=== PATIENT | female | born 1940 | race Caucasian/White ===

== ENCOUNTER 2019-04-09 19:04 | Emergency (ER) | payer MEDICARE ==
[2019-04-09 19:34] VITALS: BP 117/67
[2019-04-09 19:59] LABS: Influenza A Molecular NEGATIVE (Negative); Influenza B Molecular NEGATIVE (Negative)
[2019-04-09] MEDS ORDERED: Albuterol HFA INHALER* 8 gm MDI INH ONE (20:06)
[2019-04-09] MEDS ORDERED: Amoxicillin PO (*) 500 MG CAP PO ONE (20:07)
[2019-04-09] MEDS ORDERED: Amoxicillin PO (*) 250 MG CAP PO ONE (20:07)
--- NOTE | 2019-04-09 20:07 | UC ---
Respiratory Complaint HPI - HPI Summary HPI Summary: 78 yo female with fever/cough mailase x 1-2 days no cp (+) wheezing with mild dyspnea no n/v/d - History of Current Complaint Chief Complaint: UCGeneralIllness Stated Complaint: FEVER COUGH SORE THROAT HEADACHE Time Seen by Provider: 04/09/19 19:07 Hx Obtained From: Patient Onset/Duration: Gradual Onset, Lasting Days Timing: Constant Severity Initially: Mild Severity Currently: Moderate Pain Intensity: 0 Pain Scale Used: 0-10 Numeric Character: Cough: Productive Aggravating Factors: Nothing Alleviating Factors: Nothing Associated Signs And Symptoms: Positive: Dyspnea, Fever, Chills, Wheezing, Nasal Congestion. Negative: Hemoptysis, Dizziness, Calf Pain, Calf Swelling, Edema, URI, Hoarseness - Allergies/Home Medications Allergies/Adverse Reactions: Allergies Allergy/AdvReac Type Severity Reaction Status Date / Time No Known Allergies Allergy Verified 04/09/19 19:34 PMH/Surg Hx/FS Hx/Imm Hx Previously Healthy: Yes Endocrine History: Dyslipidemia Cardiovascular History: Hypertension - Surgical History Surgical History: Yes Surgery Procedure, Year, and Place: 1982 HYSTERECTOMY, [facility]. 2014- LEFT EYE CATARACT- [facility] – [place] - Family History Known Family History: Positive: Hypertension - Social History Alcohol Use: None Substance Use Type: None Smoking Status (MU): Current Every Day Smoker Type: Cigarettes Amount Used/How Often: 1/2 ppd PER DAY X 60 YEARS Length of Time of Smoking/Using Tobacco: 53 YEARS Have You Smoked in the Last Year: Yes Review of Systems All Other Systems Reviewed And Are Negative: Yes Constitutional: Positive: Fever, Chills, Fatigue Skin: Positive: Negative Eyes: Positive: Negative ENT: Positive: Nasal Discharge, Sinus Congestion Respiratory: Positive: Cough Cardiovascular: Positive: Negative Gastrointestinal: Positive: Negative Genitourinary: Positive: Negative Motor: Positive: Negative Neurovascular: Positive: Negative Musculoskeletal: Positive: Negative Neurological: Positive: Negative Psychological: Positive: Negative Physical Exam Triage Information Reviewed: Yes Appearance: Well-Appearing, No Pain Distress, Well-Nourished Vital Signs: Initial Vital Signs Temp 98.4 F 04/09/19 19:26 Pulse 96 04/09/19 19:26 Resp 20 04/09/19 19:26 BP 117/67 04/09/19 19:26 Pulse Ox 94 04/09/19 19:26 Vital Signs Reviewed: Yes Eyes: Positive: Conjunctiva Clear ENT: Positive: Hearing grossly normal, Uvula midline. Negative: Nasal congestion, Nasal drainage, Trismus, Muffled voice, Hoarse voice Neck: Positive: Supple, Nontender, No Lymphadenopathy Respiratory: Positive: No respiratory distress, No accessory muscle use, Wheezing Cardiovascular: Positive: RRR, No Murmur Musculoskeletal: Positive: ROM Intact, No Edema Neurological: Positive: Alert Psychological Exam: Normal Diagnostics - Radiology No standard instances Radiology Interpretation Completed By: ED Physician Summary of Radiographic Findings: ? RLL infiltrate Respiratory Course/Dx - Differential Dx/Diagnosis Provider Diagnosis: Pneumonia Discharge ED - Sign-Out/Discharge Documenting (check all that apply): Patient Departure All imaging exams completed and their final reports reviewed: No - Discharge Plan Condition: Stable Disposition: HOME Patient Education Materials: Community Acquired Pneumonia (ED), How to Use a Metered-Dose Inhaler and a Spacer (ED) Referrals: Radha Chand MD [Primary Care Provider] - 3 Days Additional Instructions: The offical XR reading is pending You have an early pneumonia recheck with your MD early this week - Billing Disposition and Condition Condition: STABLE Disposition: Home
--- NOTE | 2019-04-10 17:10 | UC ---
- Progress Note Progress Note: Final radiologist reading for chest x-ray from April 09, 2019 comes back as a right lower lobe infiltrate. Provider's interpretation from same date is the same therefore there is no discrepancy. Course/Dx - Diagnoses Provider Diagnoses: Pneumonia Discharge ED - Sign-Out/Discharge Documenting (check all that apply): Patient Departure All imaging exams completed and their final reports reviewed: Yes - Discharge Plan Condition: Stable Disposition: HOME Prescriptions: Amoxicillin PO (*) [Amoxicillin 875 MG (*)] 875 mg PO BID #14 tab Patient Education Materials: Community Acquired Pneumonia (ED), How to Use a Metered-Dose Inhaler and a Spacer (ED) Referrals: Radha Chand MD [Primary Care Provider] - 3 Days Additional Instructions: The offical XR reading is pending You have an early pneumonia recheck with your MD early this week - Billing Disposition and Condition Condition: STABLE Disposition: Home
== END 2019-04-09 20:31 | disposition home or self-care (01) ==
LOC: UCCORT 19:04
DX: J18.9 Pneumonia, unspecified organism (principal); J44.9 Chronic obstructive pulmonary disease, unspecified; I10 Essential (primary) hypertension; F17.210 Nicotine dependence, cigarettes, uncomplicated
CPT/HCPCS: 71046; 99203; A9270-GY; G0463

== ENCOUNTER 2022-12-21 14:03 | Inpatient (IN) ==
[2022-12-21] MEDS ORDERED: NS 0.9% 1000 ml BAG 1,000 ML IV ONE ×2 (14:13→16:45)
[2022-12-21 15:14] LABS: Hematocrit 32.5 % (35-45); Hemoglobin 11.2 g/dL (11.5-14.3); Mean Corpuscular Hemoglobin 28.7 pg (27-33); Mean Corpuscular Hgb Conc 34.5 g/dL (31-36); Mean Corpuscular Volume 83.3 fL (80-97); Mean Platelet Volume 7.6 fL (7.5-11.2); Platelet Count 86 10^3/uL (150-450); Red Cell Distribution Width 18.8 % (12-17); White Blood Count 0.7 10^3/uL (3.8-11.8)
[2022-12-21 15:23] LABS: High Sens Troponin Baseline 7 pg/mL (<15)
[2022-12-21 15:32] LABS: ALT 13 U/L (7-52); Albumin 2.6 g/dL (3.2-5.2); Albumin/Globulin Ratio 1.1 (1-3); Alkaline Phosphatase 51 U/L (35-149); Blood Urea Nitrogen 9 mg/dL (6-24); C Reactive Protein 127.24 mg/L (<8.01); CO2 Carbon Dioxide 16 mmol/L (22-32); Calcium 6.8 mg/dL (8.6-10.3); Chloride 106 mmol/L (101-111); Creatinine, Serum 0.43 mg/dL (0.51-0.95); Globulin 2.3 g/dL (2-4); Glucose 103 mg/dL (70-100); Lipase < 10 U/L (11.0-82.0); Sodium 130 mmol/L (135-145); Total Protein 4.9 g/dL (6.4-8.9); eGFR CKD-EPI 96.4 (>60)
[2022-12-21 15:44] LABS: Anion Gap 8 mmol/L (2-16)
[2022-12-21 16:19] LABS: ABS Lymphocytes 0.3 10^3/uL (1.0-4.8); Eosinophil % 1.4 %; Lymphocyte % 45.4 %; Nucleated Red Blood Cells % 0.6 /100 WBC (0.0-0.4)
[2022-12-21 16:39] LABS: ABS Neutrophils 0.4 10^3/uL (1.5-7.6)
[2022-12-21 16:52] LABS: INR 1.19 (0.88-1.18)
[2022-12-21 16:57] LABS: Magnesium 1.7 mg/dL (1.9-2.7); Phosphorus 1.7 mg/dL (2.5-5.0); Potassium Redraw 3.2 mmol/L (3.5-5.0)
[2022-12-21] MEDS ORDERED: KCL 20 MEQ/100 ML IVPREMIX 20 MEQ/100 ML BAG IV ONE (17:49)
[2022-12-21] MEDS ORDERED: Magnesium Sulfate IV 3 GM in NS 0.9% 100 ml BAG 100 ML IVPB ONE (17:49)
[2022-12-22 06:37] LABS: Albumin 2.6 g/dL (3.2-5.2); Albumin/Globulin Ratio 1.2 (1-3); Calcium 6.7 mg/dL (8.6-10.3); Creatinine, Serum 0.43 mg/dL (0.51-0.95); Globulin 2.1 g/dL (2-4); Magnesium 2.5 mg/dL (1.9-2.7); Phosphorus 1.8 mg/dL (2.5-5.0); Potassium 3.1 mmol/L (3.5-5.0); Total Bilirubin 0.8 mg/dL (0.2-1.0); Total Protein 4.7 g/dL (6.4-8.9); eGFR CKD-EPI 96.4 (>60)
[2022-12-22 06:43] LABS: ABS Lymphocytes 0.4 10^3/uL (1.0-4.8); ABS Neutrophils 0.3 10^3/uL (1.5-7.6); ABS Nucleated RBC 0.01 10^3/ul; Eosinophil % 1.3 %; Hematocrit 34.5 % (35-45); Hemoglobin 11.7 g/dL (11.5-14.3); Lymphocyte % 59.3 %; Mean Corpuscular Hgb Conc 33.9 g/dL (31-36); Mean Corpuscular Volume 85.5 fL (80-97); Mean Platelet Volume 7.7 fL (7.5-11.2); Nucleated Red Blood Cells % 0.8 /100 WBC (0.0-0.4); Platelet Count 92 10^3/uL (150-450); Red Blood Count 4.04 10^6/uL (3.63-4.92); Red Cell Distribution Width 18.6 % (12-17); White Blood Count 0.7 10^3/uL (3.8-11.8)
[2022-12-22] MEDS ORDERED: Potassium Chloride LIQUID 20 MEQ/15 ML LIQUID PO ONE (10:05)
[2022-12-22] MEDS: Morphine ER 15 mg TAB ** extended release PO SCH (20:30)
[2022-12-23] MEDS: Ondansetron 4 mg VIAL 2 MG/ML 2 ml VIAL IV PRN ×2 (02:33→10:02)
[2022-12-23 06:36] LABS: ABS Lymphocytes 0.3 10^3/uL (1.0-4.8); ABS Monocytes 0.1 10^3/uL (0.0-0.9); ABS Neutrophils 0.1 10^3/uL (1.5-7.6); Eosinophil % 2.7 %; Hemoglobin 11.6 g/dL (11.5-14.3); Lymphocyte % 65.5 %; Mean Corpuscular Hemoglobin 28.8 pg (27-33); Mean Corpuscular Hgb Conc 33.2 g/dL (31-36); Mean Corpuscular Volume 86.8 fL (80-97); Platelet Count 104 10^3/uL (150-450); Red Blood Count 4.03 10^6/uL (3.63-4.92); Red Cell Distribution Width 19.4 % (12-17); White Blood Count 0.5 10^3/uL (3.8-11.8)
[2022-12-23 06:39] LABS: Calcium 7.2 mg/dL (8.6-10.3); Creatinine, Serum 0.43 mg/dL (0.51-0.95); Potassium 2.9 mmol/L (3.5-5.0); eGFR CKD-EPI 96.4 (>60)
[2022-12-23 07:02] LABS: Nucleated Red Blood Cells % 0.4 /100 WBC (0.0-0.4)
[2022-12-23] MEDS ORDERED: Potassium Chloride LIQUID 20 MEQ/15 ML LIQUID PO ONE (07:29)
[2022-12-23] MEDS: KCL 20 MEQ/100 ML IVPREMIX 20 MEQ/100 ML BAG IV SCH ×2 (10:06→13:35)
[2022-12-23] MEDS: Morphine ER 15 mg TAB ** extended release PO SCH ×2 (10:11→20:22)
[2022-12-23] MEDS: Potassium Chlor 20 meq TAB.ER PO SCH (10:17)
[2022-12-24 06:07] LABS: Hematocrit 35.3 % (35-45); Hemoglobin 11.9 g/dL (11.5-14.3); Mean Corpuscular Hemoglobin 28.6 pg (27-33); Mean Corpuscular Hgb Conc 33.7 g/dL (31-36); Mean Corpuscular Volume 84.8 fL (80-97); Mean Platelet Volume 8.1 fL (7.5-11.2); Platelet Count 97 10^3/uL (150-450); Red Blood Count 4.16 10^6/uL (3.63-4.92); Red Cell Distribution Width 19.1 % (12-17); White Blood Count 0.5 10^3/uL (3.8-11.8)
[2022-12-24 06:15] LABS: Creatinine, Serum 0.53 mg/dL (0.51-0.95); Potassium 2.9 mmol/L (3.5-5.0); eGFR CKD-EPI 91.7 (>60)
[2022-12-24 07:52] LABS: Magnesium 1.7 mg/dL (1.9-2.7)
[2022-12-24 08:26] LABS: ABS Lymphocytes 0.3 10^3/uL (1.0-4.8); ABS Monocytes 0.1 10^3/uL (0.0-0.9); ABS Neutrophils 0.1 10^3/uL (1.5-7.6); Eosinophil % 0.3 %
[2022-12-24] MEDS ORDERED: Magnesium Sulfate IV 3 GM in NS 0.9% 100 ml BAG 100 ML IVPB ONE (08:30)
[2022-12-24] MEDS: Morphine ER 15 mg TAB ** extended release PO SCH ×2 (09:42→19:31)
[2022-12-24] MEDS: KCL 20 MEQ/100 ML IVPREMIX 20 MEQ/100 ML BAG IV SCH ×2 (09:42→14:34)
[2022-12-24] MEDS: Potassium Chlor 20 meq TAB.ER PO SCH (09:43)
[2022-12-24] MEDS: Ondansetron 4 mg VIAL 2 MG/ML 2 ml VIAL IV PRN ×2 (13:01→20:01)
[2022-12-24] MEDS ORDERED: cefTRIAXone 1 gm/50 mL D5W 1 GM/50 ML BAG IV SCH (18:30)
[2022-12-24] MEDS ORDERED: Azithromycin 500 mg/250 ml NS 500 MG/250 ML BAG IVPB SCH (19:30)
[2022-12-25 06:34] LABS: Hematocrit 34.5 % (35-45); Hemoglobin 11.8 g/dL (11.5-14.3); Mean Corpuscular Hemoglobin 28.7 pg (27-33); Mean Corpuscular Hgb Conc 34.1 g/dL (31-36); Mean Corpuscular Volume 84.1 fL (80-97); White Blood Count 0.7 10^3/uL (3.8-11.8)
[2022-12-25 06:38] LABS: Creatinine, Serum 0.46 mg/dL (0.51-0.95); Magnesium 2.1 mg/dL (1.9-2.7); Potassium 2.9 mmol/L (3.5-5.0); eGFR CKD-EPI 94.9 (>60)
[2022-12-25 07:02] LABS: Mean Platelet Volume 8.8 fL (7.5-11.2); Platelet Count 68 10^3/uL (150-450)
[2022-12-25 07:04] LABS: ABS Lymphocytes 0.3 10^3/uL (1.0-4.8); ABS Neutrophils 0.5 10^3/uL (1.5-7.6); Anisocytosis 2+; Eosinophil % 0.3 %; Nucleated Red Blood Cells % 0.3 /100 WBC (0.0-0.4)
[2022-12-25] MEDS: KCL 20 MEQ/100 ML IVPREMIX 20 MEQ/100 ML BAG IV SCH ×2 (08:11→11:04)
[2022-12-25] MEDS: Potassium Chlor 20 meq TAB.ER PO SCH (08:11)
[2022-12-25] MEDS: Morphine ER 15 mg TAB ** extended release PO SCH ×2 (08:11→20:47)
[2022-12-25] MEDS ORDERED: Lactated Ringers 1000 ml BAG 1,000 ML IV ONE (09:57)
[2022-12-25] MEDS ORDERED: Cefepime ADVAN 1 GM in NS 0.9% 50 ML 50 ML IVPB SCH (10:00)
[2022-12-25] MEDS ORDERED: Cefepime 2 GM in Dextrose 2 GM/50 ML BAG IV SCH (11:00)
[2022-12-25] MEDS: Cefepime 2 GM in Dextrose 2 GM/50 ML BAG IV SCH ×2 (12:38→23:45)
[2022-12-25] MEDS ORDERED: KCL 20 MEQ/100 ML IVPREMIX 20 MEQ/100 ML BAG IV ONE (13:31)
[2022-12-25 13:57] VITALS: BP 107/64
[2022-12-26 08:35] LABS: Hematocrit 30.8 % (35-45); Hemoglobin 10.5 g/dL (11.5-14.3); Mean Corpuscular Hemoglobin 28.7 pg (27-33); Mean Corpuscular Hgb Conc 34.1 g/dL (31-36); Mean Corpuscular Volume 84.3 fL (80-97); Mean Platelet Volume 8.9 fL (7.5-11.2); Platelet Count 44 10^3/uL (150-450); Red Blood Count 3.66 10^6/uL (3.63-4.92); Red Cell Distribution Width 19.4 % (12-17); White Blood Count 1.2 10^3/uL (3.8-11.8)
[2022-12-26 08:38] LABS: Calcium 6.8 mg/dL (8.6-10.3); Creatinine, Serum 0.38 mg/dL (0.51-0.95); Potassium 3.1 mmol/L (3.5-5.0); eGFR CKD-EPI 99.4 (>60)
[2022-12-26 09:26] LABS: ABS Lymphocytes 0.2 10^3/uL (1.0-4.8); ABS Nucleated RBC 0.01 10^3/ul; Eosinophil % 0.3 %; Lymphocyte % 17.6 %; Nucleated Red Blood Cells % 0.4 /100 WBC (0.0-0.4); RBC Morphology Normal (Normal)
[2022-12-26] MEDS: Morphine ER 15 mg TAB ** extended release PO SCH ×2 (09:48→21:51)
[2022-12-26] MEDS: Cefepime 2 GM in Dextrose 2 GM/50 ML BAG IV SCH ×2 (12:00→21:55)
[2022-12-27 06:52] LABS: ABS Lymphocytes 0.4 10^3/uL (1.0-4.8); Lymphocyte % 16.9 %; Nucleated Red Blood Cells % 0.1 /100 WBC (0.0-0.4)
[2022-12-27 06:53] LABS: Anisocytosis 1+; Burr Cells 1+; Hematocrit 32.8 % (35-45); Hemoglobin 11.1 g/dL (11.5-14.3); Mean Corpuscular Hemoglobin 28.7 pg (27-33); Mean Corpuscular Volume 84.5 fL (80-97); Mean Platelet Volume 10.2 fL (7.5-11.2); Platelet Count 35 10^3/uL (150-450); Red Blood Count 3.87 10^6/uL (3.63-4.92); Red Cell Distribution Width 19.9 % (12-17); Toxic Granulation 1+; White Blood Count 2.5 10^3/uL (3.8-11.8)
[2022-12-27] MEDS: Morphine ER 15 mg TAB ** extended release PO SCH ×2 (08:02→20:16)
[2022-12-27] MEDS: Cefepime 2 GM in Dextrose 2 GM/50 ML BAG IV SCH ×2 (10:32→23:04)
[2022-12-28 06:18] LABS: Hematocrit 29.7 % (35-45); Hemoglobin 10.2 g/dL (11.5-14.3); Mean Corpuscular Hemoglobin 28.9 pg (27-33); Mean Corpuscular Hgb Conc 34.4 g/dL (31-36); Mean Platelet Volume 9.2 fL (7.5-11.2); Platelet Count 22 10^3/uL (150-450); Red Blood Count 3.53 10^6/uL (3.63-4.92); White Blood Count 2.9 10^3/uL (3.8-11.8)
[2022-12-28 07:21] LABS: ABS Lymphocytes 0.4 10^3/uL (1.0-4.8); ABS Neutrophils 2.5 10^3/uL (1.5-7.6); ABS Nucleated RBC 0.01 10^3/ul; Eosinophil % 0.1 %; Lymphocyte % 13.9 %; Nucleated Red Blood Cells % 0.3 /100 WBC (0.0-0.4)
[2022-12-28] MEDS: Cefepime 2 GM in Dextrose 2 GM/50 ML BAG IV SCH ×2 (10:46→23:54)
[2022-12-28] MEDS: Morphine ER 15 mg TAB ** extended release PO SCH ×2 (10:47→21:53)
[2022-12-29] MEDS: Morphine ER 15 mg TAB ** extended release PO SCH ×2 (07:58→23:06)
[2022-12-29] MEDS: Morphine ORAL CONCENTRATE 5 MG/0.25 ML ORAL.SYRIN SL PRN (23:47)
[2022-12-30] MEDS: Morphine ER 15 mg TAB ** extended release PO SCH (09:00)
[2022-12-30] MEDS: Morphine ORAL CONCENTRATE 5 MG/0.25 ML ORAL.SYRIN SL PRN (10:11)
== END 2022-12-30 10:20 | disposition hospice, home (50) | DRG 871 ==
LOC: EDHOLD 14:03 → ED 14:03 → SUATTDRO 16:33 → EDHOLD 19:53 → MED 20:47 → SUATTDRO 12-23 08:00
PROVIDERS: ADMIT Internal Medicine; ATTEND Internal Medicine